=== PATIENT | female | born 1995 | race Caucasian/White ===

== ENCOUNTER → 2023-08-20 | Emergency (ER) | payer OTHER ==
--- OUTSIDE RECORDS SUMMARY | 2023-08-20 15:05 | XMS REPORT | Continuity of Care Document ---
Author Name Unknown Address [address] [place] [address] [facility] thconnect Address [address] [place] [address] Care Team Providers Care Heel Blacker Name Role Phone LAB90 Attending Clinician Unavailable JORGE LUIS DURANT Attending Clinician Unavailab le Payers Payer Name Policy Type Policy Number Effective Date Expirati on Date Source [employer]EN[employer] 2 [id number] 2023 00:00:00 Allergies, Adverse Reactions, Alerts Allergy Name Allergy Type Status Severity Reaction(s) Onset Date Inactive Date Treating Clinician Comments Source Shellfis h Allergy Propensi ty to adverse reaction s Active Swelling 2022-08 00:00: 00 Nabila gallardo Social History Social Habit Start Date Stop Date Quantity Comments Source Sexual orientation 2023-08-20 09:52:25 Heterosexual (finding) Nabila Licona - External Sex Assigned At 1995 00:00:00 1995 00[birth year]:00 F Nabila Licona - External Smoking Status Start Date Stop Date Source Tobacco smoking consumption unknown Nabila Licona - External Medications Ordered Medication Name Filled Medication Name Start Date Stop Date Current Medication? Ordering Clinician Indication Dosage Frequency Signature (SIG) Comments Components Source TRIMETHOPRI M-SULFAMETH OXAZOLE (Bactrim DS) 800-160 MG oral Tablet 2022-08 00:00: 00 08-26 05:59 :00 Yes [id number] 1{tbl} Take 1 tablet by mouth 2 times daily for 5 days. Nabila gallardo Plan of Care Planned Activity Planned Date Details Comments Source Encounters Start Date/Time End Date/Time Encounter Type Admission Type Attending Clinicians Care Facility Care Department Encounter ID Source 2023-08-20 11:05:00 2023-08-20 11:05:00 Outpatient LAB90 NABILA DAHL [id number] Nabila Licona 2023-08-20 10:15:00 2023-08-20 10:15:00 Outpatient JORGE LUIS DURANT [id number] Nabila Licona 2023-08-20 00:00:00 2023-08-20 00:00:00 Outpatient JORGE LUIS DURANT [id number] Nabila Licona
--- NOTE | 2023-08-20 17:07 | ER ---
Nurse's Notes [facility] Name: Nicko Roman Age: 27 yrs Sex: Female : 1995 Arrival Date: 08/20/2023 Time: 15:01 Bed External Waiting Private MD: Diagnosis: Fever, unspecified;Dysuria Presentation: 08/20 15:20 Chief complaint: Patient states: Fever, pelvic cramping since 08/18. [facility] thinks it might be a IUD infection from not being taken out last year. Coronavirus screen: Client denies travel out of the [place] in the last 14 days. At this time, the client does not indicate any symptoms associated with coronavirus-19. Ebola Screen: Patient denies travel to an Ebola-affected area in the 21 days before illness onset. Initial Sepsis Screen: Does the patient meet any 2 criteria? No. Patient's initial sepsis screen is negative. Does the patient have a suspected source of infection? Yes: Acute abdominal pain. Risk Assessment: Do you want to hurt yourself or someone else? Patient reports no desire to harm self or others. Onset of symptoms was August 18, 2023. 15:20 Method Of Arrival: Ambulatory 1 15:20 Acuity: BRAVO 2 ll1 Triage Assessment: 15:22 General: Appears uncomfortable, Behavior is calm, cooperative, appropriate for age. ll1 General: Reports fever for. Pain: Complains of pain in pelvis Quality of pain is described as aching, crampy. : Reports cramping, urgency. Historical: - Allergies: 15:23 SHELLFISH; ll1 - PMHx: 15:23 Hypertensive disorder; ll1 - PSHx: 15:23 None; ll1 - Immunization history:: Adult Immunizations up to date. - Social history:: Smoking status: Patient denies any tobacco usage or history of. Assessment: 16:00 Reassessment: No changes from previously documented assessment. Not in lobby or [facility] restroom when called to exam room. 16:28 Reassessment: pt not in lobby, not in [place]. iw Vital Signs: 15:20 BP 168 / 104; Pulse 112; Resp 18; Temp 99.5; Pulse Ox 99% ; Weight 113.4 kg; Height 5 ll1 ft. 7 in. ; Pain 5/10; 15:20 Body Mass Index 39.16 (113.40 kg, 170.18 cm) ll1 15:20 Pain Scale: Adult ll1 ED Course: 15:05 Patient arrived in ED. mr 15:08 Nayely King [facility]C [facility] kb 15:08 Lew Cheney MD is Attending Physician. kb 15:22 Triage completed. ll1 15:22 Arm band placed on. ll1 15:57 Amanda Teague, RN is Primary Nurse. me1 Administered Medications: No medications were administered Outcome: 17:07 Discharge ordered by . kb 17:19 Patient left the ED. iw Signatures: Nayely King FNP-C [employer] SE[employer]ING MACHINE OPERATOR[place], Reg Reg Latha Armendariz, RN RN iw Alberto Lopez RN RN ll1 Amanda Teague, RN RN me1 Corrections: (The following items were deleted from the chart) 15:23 15:20 BP 168 / 104; Pulse 120bpm; Resp 18bpm; Pulse Ox 99%; Temp 99.5F; Pain 5/10, ll1 Adult; ll1
--- NOTE | 2023-08-20 17:07 | EDPHYS ---
Physician Documentation [facility] Name: Nicko Roman Age: 27 yrs Sex: Female : 1995 Arrival Date: 08/20/2023 Time: 15:01 Bed External Waiting Private MD: ED Physician Lew Cheney HPI: 08/20 17:31 This 27 yrs old Female presents to ER via Ambulatory with complaints of Fever, kb Abdominal Cramping. 17:31 Patient is a 27-year-old female with a history of hypertension who presents for dysuria kb that has been intermittent over the last 2 weeks, fever and suprapubic pain/cramping that started 3 days ago. States she called her [employer] [facility] and was told she may have an infection due to her IUD. States they could not get her in today so she was told to come to the ED for evaluation. Patient states she needs to have her IUD removed.. Historical: - Allergies: 15:23 SHELLFISH; ll1 - PMHx: 15:23 Hypertensive disorder; ll1 - PSHx: 15:23 None; ll1 - Immunization history:: Adult Immunizations up to date. - Social history:: Smoking status: Patient denies any tobacco usage or history of. ROS: 17:29 Respiratory: Negative for shortness of breath, cough, wheezing, and pleuritic chest kb pain, 17:29 Constitutional: Positive for fever, 17:29 Abdomen/GI: Positive for abdominal pain, 17:29 : Positive for burning with urination, 17:29 All other systems are negative, Exam: 17:28 Constitutional: This is a well developed, well nourished patient who is awake, alert, kb and in no acute distress. Head/Face: Normocephalic, atraumatic. ENT: Moist Mucous membranes Cardiovascular: Regular rate Respiratory: Respirations even and unlabored. No increased work of breathing. Talking in full sentences Back: No spinal tenderness. No costovertebral tenderness. Full range of motion. Skin: Warm, dry with normal turgor. Normal color. MS/ Extremity: Pulses equal, no cyanosis. Neurovascular intact. Full, normal range of motion. Neuro: Awake and alert, GCS 15, oriented to person, place, time, and situation. Moves all extremities. Normal gait. 17:28 Abdomen/GI: Inspection: abdomen appears normal, Bowel sounds: normal, Palpation: soft, in all quadrants, mild abdominal tenderness, in the suprapubic area, Vital Signs: 15:20 BP 168 / 104; Pulse 112; Resp 18; Temp 99.5; Pulse Ox 99% ; Weight 113.4 kg; Height 5 ll1 ft. 7 in. ; Pain 5/10; 15:20 Body Mass Index 39.16 (113.40 kg, 170.18 cm) ll1 15:20 Pain Scale: Adult ll1 MDM: 15:08 Patient medically screened. 17:29 Differential diagnosis: UTI, PID. Data reviewed: vital signs, nurses notes. ED course: Pt elected to leave from lobby prior to any diagnostics being performed. 08/20 15:54 Order name: EKG; Complete Time: 15:54 08/20 15:54 Order name: Accucheck 08/20 15:54 Order name: Cardiac monitoring 08/20 15:54 Order name: EKG - Nurse/Tech 08/20 15:54 Order name: IV Saline Lock - Large Bore 08/20 15:54 Order name: Labs collected and sent 08/20 15:54 Order name: O2 Per Protocol 08/20 15:54 Order name: O2 Sat Monitoring 08/20 15:54 Order name: Vital Signs kb Administered Medications: No medications were administered Disposition: 17:30 Co-signature as Attending Physician, Lew Cheney MD I reviewed the patient's care rn provided by the Advanced Practice Provider and agree with the diagnosis and treatment plan. Disposition Summary: 08/20/23 17:07 Discharge Ordered Notes: Location: Home Condition: Stable Diagnosis - Fever, unspecified kb - Dysuria kb Followup: kb - With: Emergency Department - When: As needed - Reason: Worsening of condition Followup: kb - With: Private Physician - When: 2 - 3 days - Reason: Recheck today's complaints, Continuance of care, Re-evaluation by your physician Forms: - Medication Reconciliation Form kb - Thank You Letter kb - Antibiotic Education kb - Prescription Opioid Use kb - Patient Portal Instructions kb - Leadership Thank You Letter kb Signatures: Dispatcher [employer] Nayely Luther, MIGUEL BATESP-Lew Hernandez MD MD rn Lewis, Lynsay, RN RN ll1
[2023-08-20 21:29] VITALS: BP 168/104; TEMP 99.5; O2SAT 99
== END ==
LOC: ER 15:01
DX: R50.9 Fever, unspecified (principal); R30.0 Dysuria; I10 Essential (primary) hypertension; Z91.013 Allergy to seafood
CPT/HCPCS: 99281